=== PATIENT | male | born 1950 | race Two or more races ===

== ENCOUNTER 2020-12-18 17:24 | Emergency (ER) | payer OTHER ==
[~2020-12-18] VITALS: Ht 175.3 cm; Wt 90.7 kg
[2020-12-18 19:13] LABS: Basophils # (auto) 0 10 ^3/uL (0-0.2); Eosinophils # (auto) 0 10 ^3/uL (0-0.8); Monocytes # (auto) 0.1 10 ^3/uL (0-1.3); Monocytes % (auto) 0.7 % (0.0-12.0); White Blood Cell 8.3 10^3/uL (4.4-10.8)
[2020-12-18 19:15] LABS: Basophils % (auto) 0.2 % (0.0-2.0); Hematocrit 33.1 % (41.0-53.0); Hemoglobin 11.2 g/dL (13.5-17.5); Lymphocytes # (auto) 0.7 10 ^3/uL (0.4-5.4); Lymphocytes % (auto) 8.2 % (10.0-50.0); Mean Corpuscular Hemoglobin 31.9 pg (28.0-32.0); Mean Corpuscular Hgb Conc. 33.7 g/dL (32.0-36.0); Mean Corpuscular Volume 94.7 fL (80.0-100.0); Neutrophils # (auto) 7.5 10 ^3/uL (1.6-8.6); Neutrophils % (auto) 90.9 % (37.0-80.0); Platelet Count (auto) 575 10^3/uL (140-450); Red Cell Distribution Width 16.5 % (11.8-14.3)
[2020-12-18 19:29] LABS: Albumin 3.5 g/dL (3.4-5.0); Calcium 10.3 mg/dL (8.5-10.1); Magnesium 2.1 mg/dL (1.6-2.6); Potassium 4.7 mmol/L (3.5-5.1)
[2020-12-18] MEDS ORDERED: LORazepam 0.5 MG TAB PO ONE (19:30)
[2020-12-18 19:31] LABS: BUN/Creatinine Ratio 15.7; Bilirubin, Total 0.5 mg/dL (0.2-1.0); Total Protein 8.3 g/dL (6.4-8.2)
[2020-12-18 19:40] LABS: Partial Thromboplastin Time 30.6 sec (23.0-31.2)
[2020-12-18 21:40] VITALS: BP 144/88
== END 2020-12-18 21:41 | disposition home or self-care (01) ==
LOC: ER 17:24
DX: D64.9 Anemia, unspecified (principal); R07.9 Chest pain, unspecified; F41.9 Anxiety disorder, unspecified; M35.81 Multisystem inflammatory syndrome; Z93.0 Tracheostomy status; Z93.1 Gastrostomy status
CPT/HCPCS: 36415; 71045; 80053; 83735; 83880; 84484; 85025; 85610; 85730; 93005; 99291